=== PATIENT | female | born 1985 | race Caucasian/White ===

== ENCOUNTER 2016-12-14 03:23 | Emergency (ER) | payer OTHER ==
[~2016-12-14] VITALS: Ht 144.8 cm; Wt 80.0 kg
[~2016-12-14 03:23] MED LIST: ALBU8.5H5 IH; CEFA250C PO; CETI-240 PO; CIPR500T4 PO; D-ME473S2 PO; HYDR-3498 PO; IBUP-1542 PO; OXYB5SYR2 PO; [UNRECOGNIZED DRUG - CODE] MC
[2016-12-14 03:30] VITALS: Ht 144.8 cm; Wt 80.0 kg
[2016-12-14] MEDS ORDERED: SOD CHLORIDE 0.9% 1,000 ML IV STA (03:58)
[2016-12-14] MEDS ORDERED: ONDANSETRON 4 MG INJ IV STA (03:58)
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
[2016-12-14 04:46] LABS: ADD SCAN DIFF NO
[2016-12-14 04:48] LABS: BASOPHILS % 0.4 % (0.0-2.0); EOSINOPHILS # 0.3 10^3/ul (0.0-0.5); EOSINOPHILS % 3.7 % (0.0-7.0); HEMATOCRIT 38.4 % (37.0-47.0); HEMOGLOBIN 12.1 g/dl (12.0-16.0); LYMPHOCYTES # 1.3 10^3/ul (0.8-2.9); MEAN CORPUSCULAR HGB CONC 31.5 g/dl (32.0-37.0); MEAN CORPUSCULAR VOLUME 92.1 fl (82.0-101.0); MEAN PLATELET VOLUME 9.8 fl (7.4-10.4); MONOCYTE # 0.6 10^3/ul (0.3-0.9); NEUTROPHIL # 6.1 10^3/ul (1.6-7.5); NEUTROPHILS % 73.7 % (39.0-77.0); PLATELET COUNT 369 10^3/UL (140-415); RED BLOOD COUNT 4.17 10^6/ul (4.20-5.40); RED CELL DISTRIBUTION WIDTH 13.4 % (11.5-14.5); WHITE BLOOD COUNT 8.3 10^3/ul (4.8-10.8)
[2016-12-14 04:58] LABS: URINE BLOOD (Dip) POC 1+ (NEGATIVE)
[2016-12-14 05:10] LABS: ALBUMIN 4.4 g/dl (3.3-4.9); ALBUMIN/GLOBULIN RATIO 1.41; BILIRUBIN,INDIRECT 0.1 mg/dl (0-1.1); BILIRUBIN,TOTAL 0.1 mg/dl (0.2-1.3); CALCIUM 9.4 mg/dl (8.4-10.2); CREATININE 0.69 mg/dl (0.44-1.00); TOTAL PROTEIN 7.5 g/dl (6.1-8.1)
[2016-12-14 05:15] LABS: ADD UMIC YES; UR ASCORBIC ACID NEGATIVE (NEGATIVE); UR BACTERIA MODERATE /HPF (NONE SEEN); UR BILIRUBIN (Dip) NEGATIVE (NEGATIVE); UR BLOOD (Dip) 1+ mg/dL (NEGATIVE); UR CLARITY CLOUDY (CLEAR); UR COLOR YELLOW (YELLOW); UR GLUCOSE (Dip) NEGATIVE (NEGATIVE); UR KETONES (Dip) TRACE mg/dL (NEGATIVE); UR LEUKOCYTE ESTERASE (Dip) 3+ Leu/ul (NEGATIVE); UR MUCUS FEW /HPF (NONE SEEN); UR NITRITE (Dip) POSITIVE (NEGATIVE); UR RBC 5 /HPF (0-5); UR SPECIFIC GRAVITY (Dip) 1.016 (1.003-1.030); UR SQUAMOUS EPITHELIAL CELL FEW /HPF (FEW); UR TOTAL PROTEIN (Dip) NEGATIVE (NEGATIVE); UR UROBILINOGEN (Dip) NEGATIVE (NEGATIVE); UR WBC CLUMPS MANY /HPF (NONE SEEN)
[2016-12-14] MEDS ORDERED: CEFTRIAXONE 1 GM/50 ML (PMX) 50 ML IVPB ONE (05:30)
[2016-12-14] MEDS ORDERED: PHEN-538 PO (05:56)
[2016-12-14] MEDS ORDERED: CIPR500T4 PO (05:56)
[2016-12-14] MEDS ORDERED: ONDA4TAB14 PO (05:56)
--- NOTE | 2016-12-14 06:18 | RADRPT ---
PROCEDURE: CT Abdomen and pelvis without contrast. CLINICAL INDICATION: Abdominal pain. TECHNIQUE: CT scan of the abdomen and pelvis was performed on a multi-detector high-resolution CT scanner. Contiguous axial images were obtained from the lung bases to the ischial tuberosities wit hout intravenous contrast. Coronal and sagittal reformatted images were also obtained. Images were reviewed on the PACS workstation. One or more of the following dose reduction techniques were used: - Automated exposure control. - Adjustment of the mA and/or kV according to patient size. - Use of iterative reconstruction technique. Exam CTD/vol = 19.51 mGy. Total exam DLP = 1101.09 mGy-cm. COMPARISON: None. FINDINGS: Evaluation of the lung bases demonstrates mild bibasilar atelectasis. There is a small hiatal herni a. Abdomen: The liver is normal in size. There is no focal mass or dilatation of the biliary tree. T he gallbladder is not distended. The spleen, pancreas and bilateral adrenal glands are within claudy l limits. Bilateral kidneys are normal in size with no contour deforming mass identified. There is no radiopaque renal or ureteral calculus identified. There is no hydronephrosis or hydroureter. T here is no retroperitoneal adenopathy. The abdominal aorta is of normal caliber. There is a ventriculoperitoneal catheter extending to the left lower abdomen. There is no bowel obs truction or free air. A normal appendix is identified. There is no diverticulosis or diverticuliti s. There is no ascites. Pelvis: The bladder is unremarkable. The uterus and adnexa are within normal limits. There is pro lapse of the pelvic floor. There is no significant pelvic adenopathy or free fluid. Evaluation of the osseous structures demonstrates no suspicious lytic or blastic lesion. There are b ilateral hip dysplasia. IMPRESSION: Pelvic floor prolapse. Small hiatal hernia. Mild bibasilar atelectasis. Bilateral dysplastic hips. Ventriculoperitoneal catheter extending to the left lower abdomen. Otherwise no acute abnormality identified within the abdomen and pelvis. .Aba Kent MD, Date Time Electronically viewed and signed by .Aba Kent MD, MD on 12/14/2016 06:17 .T/
[2016-12-14] MEDS ORDERED: HC1C30 TOP (06:36)
[2016-12-14 07:00] VITALS: TEMP 98.1
== END 2016-12-14 07:01 | disposition home or self-care (01) ==
LOC: FTE 03:23
DX: T83.511A Infection and inflammatory reaction due to indwelling urethral catheter, initial encounter (principal); R11.2 Nausea with vomiting, unspecified; N39.0 Urinary tract infection, site not specified; Y73.2 Prosthetic and other implants, materials and accessory gastroenterology and urology devices associated with adverse incidents; Z91.040 Latex allergy status
CPT/HCPCS: 51701; 74176; 80053; 81001; 83690; 85025; 87086; J0696; J2405; J7030; 36415; 81003; 96374; 96375

== ENCOUNTER 2017-06-05 05:22 | Emergency (ER) | payer OTHER ==
[~2017-06-05] VITALS: Ht 162.6 cm; Wt 77.3 kg
[~2017-06-05 05:22] MED LIST changes: +HC1C30 TOP; +ONDA4TAB14 PO; +PHEN-538 PO
[2017-06-05 05:31] VITALS: Ht 162.6 cm; Wt 77.3 kg
[2017-06-05] MEDS ORDERED: ALBUTEROL 0.083% (NEB) 2.5 MG/3 ML AMP HHN STA (07:09)
[2017-06-05] MEDS ORDERED: PRED20TA PO (07:10)
[2017-06-05] MEDS ORDERED: AZIT250T94 PO (07:10)
[2017-06-05] MEDS ORDERED: FLUT9.9S NASAL (07:10)
[2017-06-05] MEDS ORDERED: CETI10CA PO (07:10)
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
[2017-06-05] MEDS ORDERED: predniSONE 20 MG TAB PO ONE (08:00)
== END 2017-06-05 07:58 | disposition home or self-care (01) ==
LOC: FTE 05:22
DX: T59.811A Toxic effect of smoke, accidental (unintentional), initial encounter (principal)
CPT/HCPCS: 94664; 99284; J7512

== ENCOUNTER 2017-06-23 20:42 | Emergency (ER) | END 2017-06-24 01:14 | disposition home or self-care (01) ==

== ENCOUNTER 2017-08-29 21:37 | Emergency (ER) | END 2017-08-30 04:41 | disposition home or self-care (01) ==